=== PATIENT | female | born 1970 | race Caucasian/White ===

== ENCOUNTER 2018-07-26 18:21 | Emergency (ER) | payer BC ==
[2018-07-26] MEDS ORDERED: FENTANYL CITR 100 MCG/2 ML ONE ×3 (18:50→20:36)
[2018-07-26] MEDS ORDERED: NA CHLORIDE 0.9% 1,000 ML ONE (18:52)
[2018-07-26 18:57] LABS: Absolute Lymphocytes (CBC) 2.2 K/uL (0.7-4.9); Absolute Monocytes 0.6 K/uL (0.1-1.3); Absolute Neutrophil 4.5 K/uL (1.8-8.0); Basophils % 0.7 % (0-1.3); Eosinophils % 2.5 % (0-4.4); Hematocrit 43.3 % (36.0-45.0); Lymphocytes % 29.5 % (15.3-44.8); MPV 7.6 fL (7.6-11.3); Monocytes % 7.9 % (3.3-12.3); RBC Red Blood Cell Count 4.56 M/uL (3.86-4.86)
[2018-07-26] MEDS ORDERED: TETANUS & DIPHTHERIA TOX,ADULT 0.5 ML VIAL ONE (18:59)
[2018-07-26 19:00] LABS: Protime INR 0.93
[2018-07-26 19:07] LABS: Bilirubin Total 0.4 mg/dL (0.2-1.0); Potassium 3.7 mmol/L (3.5-5.1); Protein, Total 7.8 g/dL (6.4-8.2)
[2018-07-26] MEDS ORDERED: CROTALIDAE ANTIVENIM 2 GM/BOX IV ONE ×2 (19:20→19:46)
[2018-07-26] MEDS ORDERED: NA CHLORIDE 0.9% 250 ML ONE (19:24)
--- NOTE | 2018-07-26 19:24 | RAD REPORT ---
EXAM DESCRIPTION: RAD - Ankle Right 3 View - 07/26/2018 7:17 pm CLINICAL HISTORY: PAIN Snake bite COMPARISON: No comparisons FINDINGS: Soft tissue swelling is seen along the lateral leg. No fracture or radiopaque foreign body .
--- NOTE | 2018-07-26 20:46 | EDPHYS ---
Physician Documentation [facility] Name: Camryn Mosqueda Age: 48 yrs Sex: Female : 1970 Arrival Date: 07/26/2018 Time: 18:22 Bed 8 Private MD: ED Physician Santiago Aguilar HPI: 07/26 19:04 This 48 yrs old Female presents to ER via Ambulatory with complaints of Snake gs bite. 19:04 Onset: The symptoms/episode began/occurred just prior to arrival, today. Secondary to gs the bite the patient reports swelling. Associated signs and symptoms: Pertinent positives: bony tenderness, pain at site, swelling at site. Severity of symptoms: At their worst the symptoms were severe, in the emergency department the symptoms are unchanged. The patient has not experienced similar symptoms in the past. Historical: - Allergies: 18:28 No Known Allergies; la1 - PMHx: 18:28 None; la1 - Immunization history:: Adult Immunizations up to date. - Social history:: Smoking status: Patient uses tobacco products, smokes one-half pack cigarettes per day. - Ebola Screening: : No symptoms or risks identified at this time. ROS: 19:04 All other systems are negative. gs Exam: 19:04 Head/Face: Normocephalic, atraumatic. Eyes: Pupils equal round and reactive to light, gs extra-ocular motions intact. Lids and lashes normal. Conjunctiva and sclera are non-icteric and not injected. Cornea within normal limits. Periorbital areas with no swelling, redness, or edema. ENT: Nares patent. No nasal discharge, no septal abnormalities noted. Tympanic membranes are normal and external auditory canals are clear. Oropharynx with no redness, swelling, or masses, exudates, or evidence of obstruction, uvula midline. Mucous membranes moist. Neck: Trachea midline, no thyromegaly or masses palpated, and no cervical lymphadenopathy. Supple, full range of motion without nuchal rigidity, or vertebral point tenderness. No Meningismus. Chest/axilla: Normal chest wall appearance and motion. Nontender with no deformity. No lesions are appreciated. 19:04 Respiratory: Lungs have equal breath sounds bilaterally, clear to auscultation and percussion. No rales, rhonchi or wheezes noted. No increased work of breathing, no retractions or nasal flaring. Abdomen/GI: Soft, non-tender, with normal bowel sounds. No distension or tympany. No guarding or rebound. No evidence of tenderness throughout. Back: No spinal tenderness. No costovertebral tenderness. Full range of motion. Neuro: Awake and alert, GCS 15, oriented to person, place, time, and situation. Cranial nerves II-XII grossly intact. Motor strength 5/5 in all extremities. Sensory grossly intact. Cerebellar exam normal. Normal gait. 19:04 Constitutional: The patient appears alert, awake, in obvious distress, severely distressed. 19:04 Cardiovascular: Rate: tachycardic, Rhythm: regular, Pulses: no pulse deficits are appreciated. 19:04 Musculoskeletal/extremity: Extremities: noted in the lateral aspect of right calf: pain, puncture, swelling, tenderness, SMALL ECCHYMOSIS AROUND PUNCTURE, Pulses: are normal with no appreciated deficits. 19:04 Skin: 2 PUNCTURE C/W SNAKE BITE. Vital Signs: 18:28 BP 149 / 94; Pulse 112; Resp 16; Pulse Ox 98% on R/A; la1 19:10 Weight 84.37 kg; iw 19:20 BP 116 / 71; Pulse 89; Resp 17; Temp 97.6; Pulse Ox 99% on R/A; rr5 20:35 BP 118 / 70; Pulse 85; Resp 17; Temp 97.6; Pulse Ox 99% on R/A; rr5 MDM: 18:33 Patient medically screened. gs 19:04 Differential diagnosis: EXAM EVERY 15 MINUTES INCREASE SWELLING PAIN, TACHYCARDIA WILL GIVE 4 VIAL CROFAB. Data reviewed: vital signs, nurses notes, lab test result(s). 07/26 18:36 Order name: CBC with Diff 07/26 18:36 Order name: CMP 07/26 18:36 Order name: Protime (+inr) 07/26 18:36 Order name: Ptt, Activated 07/26 18:36 Order name: D-Dimer 07/26 18:36 Order name: CPK 07/26 18:36 Order name: CBC with Automated Diff EDMS 07/26 18:45 Order name: Fibrinogen 07/26 18:45 Order name: Ankle Right 3 View XRAY 07/26 18:36 Order name: EKG - Nurse/Tech; Complete Time: 18:44 gs Administered Medications: 18:51 Drug: fentaNYL (PF) 50 mcg Route: IVP; Site: right antecubital; hb 20:00 Follow up: Response: No adverse reaction rr5 18:51 Drug: NS 0.9% 1000 ml Route: IV; Rate: 125 ml/hr; Site: right antecubital; hb 20:43 Follow up: Response: No adverse reaction; IV Status: Infusion continued upon transfer; rr5 IV Intake: 200ml 18:51 Drug: Tetanus-Diphtheria Toxoid Adult 0.5 ml {Rn Renal: [employer]. Exp: hb 05/07/2020. Lot #: [id number]. } Route: IM; Site: right deltoid; 20:00 Follow up: Response: No adverse reaction rr5 19:30 Drug: fentaNYL (PF) 50 mcg Route: IVP; Site: right antecubital; rr5 20:21 Follow up: Response: No adverse reaction; Pain is decreased rr5 20:30 Follow up: Response: No adverse reaction rr5 19:50 Drug: CroFab 6 vials Route: IV; Rate: calculated rate; Site: right antecubital; rr5 20:41 Follow up: Response: No adverse reaction; IV Status: Infusion continued upon transfer; rr5 IV Intake: 125ml 20:09 Not Given (Other Intervention Used): CroFab 4 vials IV at calculated rate once; may rr5 repeat at >=1 hour intervals until initial control of symptoms 20:28 Drug: fentaNYL (PF) 50 mcg Route: IVP; Site: right antecubital; rr5 20:42 Follow up: Response: No adverse reaction; given upon transfer rr5 Disposition: 07/26/18 20:[address] [facility]. Diagnosis is Toxic effect of rattlesnake venom. - Reason for transfer: Higher level of care. - Accepting physician is Dr santoyo. - Condition is Stable. - Problem is new. - Symptoms have improved. Signatures: Dispatcher [employer] EDMS Emilia Ochoa, GREG GARZA Maciel Velazquez RN RN la1 Meg Simpson RN RN Santiago Aguilar MD MD Shady Rod MD MD tw4 Manish Tovar RN RN rr5 Corrections: (The following items were deleted from the chart) 20:53 20:45 07/26/2018 20:[address] [facility]. rr5 Diagnosis is Toxic effect of rattlesnake venom. Reason for transfer: Higher level of care. Accepting physician is Dr santoyo. Condition is Stable. Problem is new. Symptoms have improved. tw4
--- NOTE | 2018-07-26 20:46 | ER ---
Nurse's Notes [facility] Name: Camryn Mosqueda Age: 48 yrs Sex: Female : 1970 Arrival Date: 07/26/2018 Time: 18:22 Bed 8 Private MD: Diagnosis: Toxic effect of rattlesnake venom Presentation: 07/26 18:27 Presenting complaint: Patient states: I got bit by a rattlesnake about 30 minutes ago. la1 Transition of care: patient was not received from another setting of care. Onset of symptoms was July 26, 2018. Risk Assessment: Do you want to hurt yourself or someone else? Patient reports no desire to harm self or others. Initial Sepsis Screen: Does the patient meet any 2 criteria? No. Patient's initial sepsis screen is negative. Does the patient have a suspected source of infection? No. Patient's initial sepsis screen is negative. Care prior to arrival: None. 18:27 Method Of Arrival: Ambulatory la1 18:27 Acuity: CLEOPATRA 2 la1 Triage Assessment: 18:55 Bite description: animal information: vaccination(s). hb Historical: - Allergies: 18:28 No Known Allergies; la1 - PMHx: 18:28 None; la1 - Immunization history:: Adult Immunizations up to date. - Social history:: Smoking status: Patient uses tobacco products, smokes one-half pack cigarettes per day. - Ebola Screening: : No symptoms or risks identified at this time. Screenin:33 Abuse screen: Denies threats or abuse. Denies injuries from another. Nutritional hb screening: No deficits noted. Tuberculosis screening: No symptoms or risk factors identified. Fall Risk None identified. Assessment: 18:45 Reassessment: Pt c/o right outer ankle/bone pain and feels like her leg is locking up. sv Informed Dr Aguilar, no further orders. 18:47 General: Appears uncomfortable, Behavior is cooperative, anxious, crying. Pain: Pain hb currently is 10 out of 10 on a pain scale. Neuro: Level of Consciousness is awake, alert, obeys commands, Oriented to person, place, time, situation. Cardiovascular: Capillary refill < 3 seconds Patient's skin is warm and dry. Respiratory: Airway is patent Respiratory effort is even, unlabored, Respiratory pattern is regular, symmetrical, Breath sounds are clear bilaterally. GI: No signs and/or symptoms were reported involving the gastrointestinal system. : No signs and/or symptoms were reported regarding the genitourinary system. EENT: No signs and/or symptoms were reported regarding the EENT system. Derm: Skin is healthy with good turgor, Skin is pink, warm \T\ dry. Wound noted Other: snake bite to right lateral lower leg, mild swelling and redness noted at site, area marked with surgical marker. 18:53 Reassessment: Dr Aguilar at the bedside. sv 19:15 General: Appears in no apparent distress. uncomfortable, Behavior is cooperative, rr5 anxious. Pain: Complains of pain in right lower leg Pain radiates to right foot Pain currently is 10 out of 10 on a pain scale. Quality of pain is described as burning, Pain began suddenly, Is intermittent. 19:15 Neuro: Level of Consciousness is awake, alert, obeys commands, Oriented to person, rr5 place, time, situation, Appropriate for age. Cardiovascular: Capillary refill < 3 seconds Patient's skin is warm and dry. Respiratory: Airway is patent Respiratory effort is even, unlabored, Respiratory pattern is regular, symmetrical. GI: No signs and/or symptoms were reported involving the gastrointestinal system. : No signs and/or symptoms were reported regarding the genitourinary system. Derm: Skin is healthy with good turgor, Skin is pink, warm \T\ dry. Wound noted Other: snake bite. Musculoskeletal: Capillary refill < 3 seconds, Swelling present in right foot. Injury Description: Bite sustained to right lower leg caused by a snake, is from animal, was sustained 1-2 hours ago. 20:00 Reassessment: Patient appears in no apparent distress at this time. Patient is alert, rr5 oriented x 3, equal unlabored respirations, skin warm/dry/pink. explained to patient she will be transfer to [facility] and she agreed. complaining of pain at right leg. ED provider informed with order made and carried out. 20:15 Reassessment: Patient appears in no apparent distress at this time. Patient is alert, rr5 oriented x 3, equal unlabored respirations, skin warm/dry/pink. no complaints made. no reaction from the ongoing crofab medication infusion. Vital Signs: 18:28 BP 149 / 94; Pulse 112; Resp 16; Pulse Ox 98% on R/A; la1 19:10 Weight 84.37 kg; iw 19:20 BP 116 / 71; Pulse 89; Resp 17; Temp 97.6; Pulse Ox 99% on R/A; rr5 20:35 BP 118 / 70; Pulse 85; Resp 17; Temp 97.6; Pulse Ox 99% on R/A; rr5 ED Course: 18:22 Patient arrived in ED. as 18:28 Triage completed. la1 18:28 Arm band placed on left wrist. la1 18:30 Patient has correct armband on for positive identification. Bed in low position. Call sv light in reach. Adult w/ patient. Pulse ox on. NIBP on. 18:33 Santiago Aguilar MD is Attending Physician. gs 18:44 Initial lab(s) drawn, by ED staff, sent to lab. EKG done, by ED staff, reviewed by ms Santiago Aguilar MD. Inserted saline lock: 20 gauge in right antecubital area, using aseptic technique. Blood collected. 18:50 Meg Simpson, RN is Primary Nurse. hb 19:17 Ankle Right 3 View XRAY In Process Unspecified. EDMS 20:40 No provider procedures requiring assistance completed. Patient transferred, IV remains rr5 in place. intact. Administered Medications: 18:51 Drug: fentaNYL (PF) 50 mcg Route: IVP; Site: right antecubital; hb 20:00 Follow up: Response: No adverse reaction rr5 18:51 Drug: NS 0.9% 1000 ml Route: IV; Rate: 125 ml/hr; Site: right antecubital; hb 20:43 Follow up: Response: No adverse reaction; IV Status: Infusion continued upon transfer; rr5 IV Intake: 200ml 18:51 Drug: Tetanus-Diphtheria Toxoid Adult 0.5 ml {Note Taker: [employer]. Exp: hb 05/07/2020. Lot #: [id number]. } Route: IM; Site: right deltoid; 20:00 Follow up: Response: No adverse reaction rr5 19:30 Drug: fentaNYL (PF) 50 mcg Route: IVP; Site: right antecubital; rr5 20:21 Follow up: Response: No adverse reaction; Pain is decreased rr5 20:30 Follow up: Response: No adverse reaction rr5 19:50 Drug: CroFab 6 vials Route: IV; Rate: calculated rate; Site: right antecubital; rr5 20:41 Follow up: Response: No adverse reaction; IV Status: Infusion continued upon transfer; rr5 IV Intake: 125ml 20:09 Not Given (Other Intervention Used): CroFab 4 vials IV at calculated rate once; july rr5 repeat at >=1 hour intervals until initial control of symptoms 20:28 Drug: fentaNYL (PF) 50 mcg Route: IVP; Site: right antecubital; rr5 20:42 Follow up: Response: No adverse reaction; given upon transfer rr5 Intake: 20:41 IV: 125ml; Total: 125ml. rr5 20:43 IV: 200ml; Total: 325ml. rr5 Outcome: 19:48 Transferred by ground EMS to [facility], X-rays sent w/ patient. Note: ak1 report called to Loree visiting housekeeper at [facility] 19:48 Instructed on the need for transfer. 20:40 Condition: stable rr5 20:45 ER care complete, transfer ordered by . tw4 20:53 Patient left the ED. rr5 Signatures: Dispatcher [employer] EDMS Chiara Duran, RN Arlet Fuller Irene, RN Chuyita Bullard ms, Lee, RN Barb Calderon RN RN ak1 Meg Simpson RN RN hb Starr, Gregory, MD MD gs Wadley, Terrence, MD MD tw4 Manish Tovar RN RN rr5
--- NOTE | 2018-07-27 12:52 | EKG ---
Test Date: 2018-07-26 Test Time: 18:42:11 Assistant Pressman: MEASUREMENT RESULTS: Intervals: Rate: 91 UT: 156 QRSD: 82 QT: 344 QTc: 423 [place]: P: 68 UT: 156 QRS: 49 T: 56 INTERPRETIVE STATEMENTS: Normal sinus rhythm Normal ECG No previous ECG available for comparison Electronically Signed On 07-27-18 12:50:39 CDT by Dallas Lutz
== END 2018-07-26 20:53 | disposition short-term general hospital (02) ==
LOC: ER 18:21
DX: T63.011A Toxic effect of rattlesnake venom, accidental (unintentional), initial encounter (principal); Y92.9 Unspecified place or not applicable; F17.210 Nicotine dependence, cigarettes, uncomplicated; Z23 Encounter for immunization
CPT/HCPCS: 36415; 80053; 82550; 85025; 85379; 85384; 85610; 85730; 90471; 90714; 93005; 96361; 96365; 96375; 99285; J0840; J3010; J7030